=== PATIENT | female | born 2000 | race Caucasian/White ===

== ENCOUNTER → 2024-08-25 08:38 | Outpatient (REF) | payer OTHER, SELFPAY | LOC: RCS 08:38 | PROVIDERS: ATTENDING PHYSICIAN Internal Medicine Cardiovascular Disease; FAMILY PHYSICIAN Student in an Organized Health Care Education/Training Program | DX: R01.1 Cardiac murmur, unspecified (principal) | CPT/HCPCS: 93306 ==